=== PATIENT | male | born 1945 | race Caucasian/White ===

== ENCOUNTER 2019-11-04 21:12 | Emergency (ER) | payer OTHER ==
[~2019-11-04] VITALS: Ht 185.4 cm; Wt 108.9 kg
[~2019-11-04 21:12] MED LIST: ATOR20 PO; ATOR80 PO; Aspirin EC81 MG PO; CLOP75 PO; ERGO50000 PO; GABA300 PO; Geri-Hydrolac140 GM TP; Hair, Skin & N1 EACH PO; ISOMON20 PO; METO50ER PO; NITR.6SL SL; Naprosyn500 MG PO; Omeprazole20 M1 PO; RABE20; [UNRECOGNIZED DRUG - OTHER]; [UNRECOGNIZED DRUG - OTHER]; [UNRECOGNIZED DRUG - REMARK]
== END 2019-11-05 00:22 | disposition home or self-care (01) ==
LOC: ER 21:12
DX: F10.129 Alcohol abuse with intoxication, unspecified (principal); T22.232A Burn of second degree of left upper arm, initial encounter; T23.202A Burn of second degree of left hand, unspecified site, initial encounter; T23.201A Burn of second degree of right hand, unspecified site, initial encounter; S40.811A Abrasion of right upper arm, initial encounter; S70.211A Abrasion, right hip, initial encounter; X08.8XXA Exposure to other specified smoke, fire and flames, initial encounter; Y92.009 Unspecified place in unspecified non-institutional (private) residence as the place of occurrence of the external cause
CPT/HCPCS: 93005; 93010; 99283-25

== ENCOUNTER 2020-02-24 22:53 | Emergency (ER) | payer OTHER ==
[~2020-02-24] VITALS: Ht 167.6 cm; Wt 108.9 kg
== END 2020-02-25 00:41 | disposition home or self-care (01) ==
LOC: ER 22:53
DX: M62.830 Muscle spasm of back (principal); I10 Essential (primary) hypertension; E78.5 Hyperlipidemia, unspecified; I25.10 Atherosclerotic heart disease of native coronary artery without angina pectoris; Z86.73 Personal history of transient ischemic attack (TIA), and cerebral infarction without residual deficits; Z91.012 Allergy to eggs; Z88.8 Allergy status to other drugs, medicaments and biological substances; Z79.82 Long term (current) use of aspirin; Z79.899 Other long term (current) drug therapy
CPT/HCPCS: 93005; 93010; 99283-25

== ENCOUNTER 2020-09-18 11:34 | Observation (INO) | payer OTHER ==
[~2020-09-18] VITALS: Ht 182.9 cm; Wt 105.6 kg
[~2020-09-18 11:34] MED LIST changes: -ATOR80 PO; -Aspirin EC81 MG PO; -CLOP75 PO; -GABA300 PO; -Hair, Skin & N1 EACH PO; -METO50ER PO; -NITR.6SL SL; -Omeprazole20 M1 PO
[2020-09-18 12:05] LABS: BASOPHILS ABSOLUTE AUTO 0.05 K/mm3 (0.00-0.23); BASOPHILS PERCENT AUTO 1 % (0-2); EOSINOPHILS ABSOLUTE AUTO 0.15 K/mm3 (0.00-0.68); EOSINOPHILS PERCENT AUTO 3 % (0-6); Hematocrit 44.8 % (37.0-53.0); Hemoglobin 15.2 g/dL (13.5-17.5); IMMATURE GRAN ABSOLUTE AUTO 0.02 K/mm3 (0.00-0.10); IMMATURE GRAN PERCENT AUTO 0 % (0-1); LYMPHOCYTES ABSOLUTE AUTO 1.81 K/mm3 (0.84-5.20); LYMPHOCYTES PERCENT AUTO 31 % (21-46); MONOCYTES ABSOLUTE AUTO 0.52 K/mm3 (0.16-1.47); MONOCYTES PERCENT AUTO 9 % (4-13); Mean Corpuscular HGB 31.1 pg (26.0-34.0); Mean Corpuscular HGB Conc 33.9 g/dL (31.5-36.5); Mean Corpuscular Volume 92 fL (80-100); Mean Platelet Volume 10.9 fL (9.1-12.4); NEUTROPHILS ABSOLUTE AUTO 3.32 K/mm3 (1.96-9.15); NEUTROPHILS PERCENT AUTO 57 % (41-73); Platelet Count 212 K/mm3 (150-400); RDW Coefficient Variation 13.3 % (11.7-14.2); RDW Standard Deviation 44.6 fL (35.1-46.3); Red Blood Cell Count 4.88 M/mm3 (4.30-5.90); White Blood Cell Count 5.87 K/mm3 (4.00-11.30)
[2020-09-18 12:28] LABS: Alanine Aminotransfer (ALT/SGP 34 U/L (12-78); Albumin, Blood 3.5 g/dL (3.4-5.0); Albumin/Globulin Ratio 1.1 (0.8-1.8); Alk Phos 77 U/L (50-136); Anion Gap 8 mmol/L (6-16); Aspartate Aminotrans (AST/SGOT 18 U/L (12-37); Bilirubin, Total 0.7 mg/dL (0.1-1.0); Blood Urea Nitrogen 16 mg/dL (8-24); Bun/Creatinine Ratio 17.4 (12.0-20.0); CO2, Blood 25 mmol/L (21-32); Calcium, Blood 8.4 mg/dL (8.5-10.1); Chloride, Blood 110 mmol/L (98-108); Creatinine, Blood 0.92 mg/dL (0.60-1.20); Globulin, Blood 3.3 g/dL (2.2-4.0); Glomerular Filtration Rate >60 (60-); Glucose, Blood 145 mg/dL (70-99); Potassium, Blood 3.8 mmol/L (3.5-5.5); Sodium, Blood 143 mmol/L (136-145); Total Protein, Blood 6.8 g/dL (6.4-8.2); Troponin I <0.015 ng/mL (0.000-0.040)
[2020-09-18 12:31] LABS: International Normalized Ratio 0.97; Prothrombin Time Results 10.5 Sec (9.7-11.5)
[2020-09-18] MEDS ORDERED: ASPI81CH PO (14:16)
[2020-09-18] MEDS ORDERED: GABA300 PO (14:17)
[2020-09-18] MEDS ORDERED: METO50ER PO (14:17)
[2020-09-18] MEDS ORDERED: ATOR80 PO (14:18)
[2020-09-18] MEDS ORDERED: NITR.4SL SL (14:18)
[2020-09-18] MEDS ORDERED: CLOP75 PO (14:18)
[2020-09-18] MEDS ORDERED: PANT40 PO (14:19)
[2020-09-18] MEDS ORDERED: THERA-D2000 UNIT PO (14:20)
[2020-09-18] MEDS ORDERED: Isosorbide Mono30 MG PO (14:21)
[2020-09-18] MEDS ORDERED: TAMS.4ER PO (14:22)
[2020-09-18] MEDS ORDERED: PRESERVISION A1 EAC1 PO (14:22)
[2020-09-18] MEDS ORDERED: DICLOFENAC SOD100 G1 TOP (14:23)
[2020-09-18] MEDS ORDERED: Flonase 0.05% N16 GM (14:23)
[2020-09-18] MEDS ORDERED: Desowen60 GM TOP (14:24)
[2020-09-18] MEDS ORDERED: TRIAMCINOLONE 0.5% TOP (14:27)
--- NOTE | 2020-09-18 18:27 | NUR ---
PATIENT ARRIVED TO UNIT FROM ED VIA [employer] SINCE ARRIVAL TO UNIT. PATIENT IS ALERT AND ORIENTED, COOPERATIVE WITH CARE. ON ROOM AIR, TOLERATING WELL. PATIENT ENDORSES CHEST PAIN THAT HAS REMAINED AT SAME LEVEL SINCE ARRIVAL TO HOSPITAL, NITRO PATCH IN PLACE. HEPARIN STARTED PER EMAR, DOSAGE PER PHARMACY. BED IN LOW POSITION, CALL LIGHT WITHIN REACH.
--- NOTE | 2020-09-19 03:39 | NUR ---
SHIFT SUMMARY PATEINT A&OX4, PLEASANT, FOLLOWING COMMANDS.SLIGHT R SIDED WEAKNESS FROM PREVIOUS CVA NOTED. SR IN THE 80'S WITH STABLE BP. CP AT TOLERABLE LEVEL OF 2 CONSTANT. NITRO PASTE APPLIED TO CHEST PER ORDER. ON RA WITH NO ACUTE DISTRESS NOTED. TOLERATING REGULAR DIET. USING URINAL TO VOID. HAVE NOT SEEN PATIENT WALK IN ROOM. HEPARIN DRIP INFUSING NOW AT THERAPEUTIC LEVEL. TROP X3 NEGATIVE. FALL PRECAUTIONS IN PLACE. WILL CONTINUE TO MONITOR.
[2020-09-19 13:11] LABS: Influenza A, PCR NEGATIVE (NEGATIVE); Influenza B, PCR NEGATIVE (NEGATIVE); Resp Syncytial Virus, PCR NEGATIVE (NEGATIVE); SARS-Cov-2 (COVID-19) PCR, MMC NEGATIVE (NEGATIVE)
--- NOTE | 2020-09-19 14:59 | NUR ---
PT BACK TO ROOM PT BACK TO ROOM FROM . VS STABLE. R FEMORAL SITE WNL. DRESSING C/D/I.
--- NOTE | 2020-09-19 16:36 | NUR ---
UPDATE PHYSICIAN ORDERED TO HAVE PT BED REST FOR 4 HRS POST ANGIO. HEPARIN GTT DC'D SEE EMAR.
--- NOTE | 2020-09-19 18:38 | NUR ---
SHIFT SUMMARY PT ALERT AND ORIENTED X 4. HR STABLE. BP STABLE. BP REPORTS IMPROVEMENT IN CP. NITRO PASTE IN PLACE. PT TO THIS AFTERNOON AT 1300. RETURNED FROM GUIDE EXCURSION AT 1500. VS STABLE. R GROIN SITE WNL. DRESSING C/D/I. PT FLAT IN BED FOR 2 HRS POST OP. HOB RAISED 15 DEGREES AT A TIME. ABLE TO AMBULATE AT 1830. OXYGEN SATURATION MAINAINED ABOVE 92% ON RA. WILL CONTINUE TO MONITOR UNTIL REPORT GIVEN TO NIGHTSHIFT RN.
--- NOTE | 2020-09-19 19:30 | NUR ---
ASSUMED CARE RECEIVED REPORT FROM VALENTINEPIER RUNNER. PT RESTING, IN NO ACUTE DISTRESS. RT FEMORAL ANGIOCATH SITE C/D/I, SLIGHT REDNESS NOTED, NO LUMPS,HEMATOMA OR OOZING NOTED. PT DENIES PAIN/DISCOMFORT TO SITE. NO OTHER ACUTE NEEDS AT THIS TIME. CALL LIGHT, POSSESSIONS IN REACH.
--- NOTE | 2020-09-20 04:35 | NUR ---
SPOKE TO DR. TRIPATHI REGARDING PT'S HYPOTENSION. ORDERS RECEIVED. WILL REASSESS PT'S BP ORDERED.
--- NOTE | 2020-09-20 05:23 | NUR ---
REGENERATOR OPERATOR SUMMARY PT LYING IN BED COMFORTABLY, IN NO ACUTE DISTRESS. VS REVIEWED,WNL. BP'S NOW STABLE AFTER REMOVAL OF NITROGLYCERIN PATCH. PT DENIES CP/PRESSURE/SOB. DRSG TO RT GROIN C/D/I, NO OOZING OR HEMATOMA NOTED. PT HAS BEEN SLEEPING T/O NIGHT, NO ACUTE CHANGES IN CONDITION TO REPORT OVERNIGHT. NO ACUTE NEEDS ASSESSED AT THIS TIME. CALL LIGHT, POSSESSIONS IN REACH, WILL CONTINUE TO PROVIDE CARE UNTIL REPORT GIVEN TO ONCOMING RN.
--- NOTE | 2020-09-20 09:00 | NUR ---
PHYSICIAN AT [facility] PHYSICIAN ORDERED HOME DOSE OF IMDUR, SEE EMAR. WILL CALL LABORATORY TECHNICIAN TO CLARIFY IF NEEDED TO INCREASE HOME DOSE OF MEDICATIONS PRIOR TO DISCHARGE.
--- NOTE | 2020-09-20 09:24 | NUR ---
CARDIOLOGY UPDATE WOODYARD CRANE OPERATOR TO SIGN OFF ON PT FOR D/C. WILL INFORM HOSPITALIST. PT TO SEE CARIODOLOGY OUTPATIENT.
--- NOTE | 2020-09-20 14:32 | NUR ---
PT DISHCARGED PT PROVIDED WITH DISHCARGE INSRUCTIONS REGARDING DX, MEDICATIONS, DIET, AND POST OP DIRECTIONS. SIGNIFICANT OTHER AT BEDSIDE. PT SIGNED DISCHARGE PAPERWORK AT BEDSIDE. IV REMOVED. TELEMETRY REMOVED. PT ESCORTED OUT OF BUILDING BY SUPERVISOR TYPESETTING WITH BELONGINGS. SIGNIFICANT OTHER TO DRIVE PT HOME.
== END 2020-09-20 14:18 | disposition home or self-care (01) ==
LOC: ER 11:34 → PCU 11:35
PROVIDERS: Internal Medicine Interventional Cardiology; Physician Assistant; ADMIT Internal Medicine
DX: I25.110 Atherosclerotic heart disease of native coronary artery with unstable angina pectoris (principal); I25.2 Old myocardial infarction; I11.0 Hypertensive heart disease with heart failure; I50.9 Heart failure, unspecified; E78.5 Hyperlipidemia, unspecified; K21.9 Gastro-esophageal reflux disease without esophagitis; I67.89 Other cerebrovascular disease; Z86.73 Personal history of transient ischemic attack (TIA), and cerebral infarction without residual deficits; Z88.8 Allergy status to other drugs, medicaments and biological substances; Z91.012 Allergy to eggs; Z95.5 Presence of coronary angioplasty implant and graft; Z79.02 Long term (current) use of antithrombotics/antiplatelets; Z20.822 Contact with and (suspected) exposure to COVID-19; Z88.2 Allergy status to sulfonamides
CPT/HCPCS: 0241U; 36415; 71046; 76937; 80053; 84484; 85025; 85610; 85730; 93005; 93010; 93454; 99152; 99153; 99285-25; A9270; A9270-GY; C1760; C1769; C1894; G0480; J1644; J2250; J3010; J7030; J7050; Q9967

== ENCOUNTER 2021-01-19 20:13 | Emergency (ER) | payer OTHER ==
[~2021-01-19] VITALS: Ht 185.4 cm; Wt 106.6 kg
[~2021-01-19 20:13] MED LIST changes: +ATOR80 PO; +Aspir 8181 MG PO; +CLOP75 PO; +DICLOFENAC SOD100 G1 TOP; +Desowen60 GM TOP; +Flonase 0.05% N16 GM; +GABA300 PO; +Isosorbide Mono30 MG PO; +METO50ER PO; +NITR.4SL SL; +PANT40 PO; +PRESERVISION A1 EAC1 PO; +TAMS.4ER PO; +THERA-D2000 UNIT PO; +TRIAMCINOLONE 0.5% TOP
[2021-01-19 20:55] LABS: BASOPHILS ABSOLUTE AUTO 0.02 K/mm3 (0.00-0.23); BASOPHILS PERCENT AUTO 0 % (0-2); EOSINOPHILS PERCENT AUTO 0 % (0-6); Hematocrit 44.5 % (37.0-53.0); Hemoglobin 15.2 g/dL (13.5-17.5); IMMATURE GRAN ABSOLUTE AUTO 0.03 K/mm3 (0.00-0.10); IMMATURE GRAN PERCENT AUTO 1 % (0-1); LYMPHOCYTES PERCENT AUTO 18 % (21-46); MONOCYTES ABSOLUTE AUTO 0.28 K/mm3 (0.16-1.47); MONOCYTES PERCENT AUTO 5 % (4-13); Mean Corpuscular HGB 31.1 pg (26.0-34.0); Mean Corpuscular HGB Conc 34.2 g/dL (31.5-36.5); Mean Corpuscular Volume 91 fL (80-100); Mean Platelet Volume 10.8 fL (9.1-12.4); NEUTROPHILS ABSOLUTE AUTO 4.77 K/mm3 (1.96-9.15); NEUTROPHILS PERCENT AUTO 77 % (41-73); Platelet Count 148 K/mm3 (150-400); RDW Coefficient Variation 13.3 % (11.7-14.2); RDW Standard Deviation 44.7 fL (35.1-46.3); Red Blood Cell Count 4.88 M/mm3 (4.30-5.90)
[2021-01-19 21:15] LABS: Alanine Aminotransfer (ALT/SGP 28 U/L (12-78); Albumin, Blood 2.8 g/dL (3.4-5.0); Albumin/Globulin Ratio 0.8 (0.8-1.8); Alk Phos 69 U/L (50-136); Anion Gap 6 mmol/L (6-16); Aspartate Aminotrans (AST/SGOT 45 U/L (12-37); Bilirubin, Total 0.5 mg/dL (0.1-1.0); Blood Urea Nitrogen 18 mg/dL (8-24); Bun/Creatinine Ratio 18.4 (12.0-20.0); CO2, Blood 25 mmol/L (21-32); Calcium, Blood 8.2 mg/dL (8.5-10.1); Chloride, Blood 105 mmol/L (98-108); Creatinine, Blood 0.98 mg/dL (0.60-1.20); Globulin, Blood 3.7 g/dL (2.2-4.0); Glomerular Filtration Rate >60 (60-); Glucose, Blood 120 mg/dL (70-99); Potassium, Blood 4.1 mmol/L (3.5-5.5); Sodium, Blood 136 mmol/L (136-145); Total Protein, Blood 6.5 g/dL (6.4-8.2); Troponin I <0.015 ng/mL (0.000-0.040)
[2021-01-19] MEDS ORDERED: DEXA4 PO (22:25)
== END 2021-01-20 01:06 | disposition home or self-care (01) ==
LOC: ER 20:13
PROVIDERS: Emergency Medicine
DX: U07.1 COVID-19 (principal); I25.10 Atherosclerotic heart disease of native coronary artery without angina pectoris; I10 Essential (primary) hypertension; Z79.82 Long term (current) use of aspirin; Z88.8 Allergy status to other drugs, medicaments and biological substances; Z91.012 Allergy to eggs
CPT/HCPCS: 71045; 80053; 83880; 84145; 84484; 85025; 93005; 93010; 99284-25; J1100

== ENCOUNTER 2021-01-22 20:11 | Inpatient (IN) | payer OTHER ==
[~2021-01-22] VITALS: Ht 180.3 cm; Wt 81.7 kg
[~2021-01-22 20:11] MED LIST changes: +DEXA4 PO
[2021-01-22 20:40] LABS: BASOPHILS ABSOLUTE AUTO 0.01 K/mm3 (0.00-0.23); BASOPHILS PERCENT AUTO 0 % (0-2); EOSINOPHILS PERCENT AUTO 0 % (0-6); Hematocrit 43.4 % (37.0-53.0); Hemoglobin 14.9 g/dL (13.5-17.5); IMMATURE GRAN ABSOLUTE AUTO 0.06 K/mm3 (0.00-0.10); IMMATURE GRAN PERCENT AUTO 1 % (0-1); LYMPHOCYTES ABSOLUTE AUTO 0.73 K/mm3 (0.84-5.20); LYMPHOCYTES PERCENT AUTO 10 % (21-46); MONOCYTES PERCENT AUTO 5 % (4-13); Mean Corpuscular HGB 30.6 pg (26.0-34.0); Mean Corpuscular HGB Conc 34.3 g/dL (31.5-36.5); Mean Corpuscular Volume 89 fL (80-100); Mean Platelet Volume 10.2 fL (9.1-12.4); NEUTROPHILS PERCENT AUTO 84 % (41-73); Platelet Count 206 K/mm3 (150-400); RDW Coefficient Variation 13.1 % (11.7-14.2); RDW Standard Deviation 42.9 fL (35.1-46.3); Red Blood Cell Count 4.87 M/mm3 (4.30-5.90)
[2021-01-22 21:00] LABS: Albumin, Blood 2.4 g/dL (3.4-5.0); Albumin/Globulin Ratio 0.6 (0.8-1.8); Bilirubin, Total 0.6 mg/dL (0.1-1.0); Bun/Creatinine Ratio 31.7 (12.0-20.0); Calcium, Blood 8.5 mg/dL (8.5-10.1); Creatinine, Blood 1.23 mg/dL (0.60-1.20); Potassium, Blood 4.1 mmol/L (3.5-5.5); Total Protein, Blood 6.4 g/dL (6.4-8.2)
[2021-01-23 06:15] LABS: Anion Gap 6 mmol/L (6-16); Blood Urea Nitrogen 35 mg/dL (8-24); CO2, Blood 26 mmol/L (21-32); Calcium, Blood 8.2 mg/dL (8.5-10.1); Chloride, Blood 109 mmol/L (98-108); Creatinine, Blood 0.81 mg/dL (0.60-1.20); Glomerular Filtration Rate >60 (60-); Glucose, Blood 135 mg/dL (70-99); Potassium, Blood 4.3 mmol/L (3.5-5.5); Sodium, Blood 141 mmol/L (136-145)
--- NOTE | 2021-01-25 10:23 | NUR ---
Code status conversation underway with patients two children Elva and Duke and also pt's sister, Sully. They have each been given a full update on status and state they will call me back this am with direction. Pt has repeatedly refused medical care since being dx with Covid approx one week ago. He came to ER initially and was sent home with O2 that he declined to use at home. Jessica called 911 when she found him severely hypoxic in his trailer. 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 Pt has wanted to leave AMA several times during his hospital stay. He does not receive regular medical care and has no PCP so medical hx is an unknown. Will cont to follow closely. Pt is currently being tx with precidex for w/d s/s and full tx for covid continues. Family clear that they want to cont tx but also state pt would not want to be intubated. Pt was told yesterday if he left the hospital AMA, he would most likely . Pt wanted to leave AMA anyway but no family could accomodate him as they are caring for his mother with covid and other ill family members currently
== END 2021-01-23 16:53 | DRG 177 ==
LOC: ER 20:11 → ERHOLD 23:15
PROVIDERS: Student in an Organized Health Care Education/Training Program; ADMIT Hospitalist
PROC: 8E0ZXY6 Isolation (ICD-10-PCS; principal; 2021-01-22)
PROC: 5A09357 Assistance with Respiratory Ventilation, Less than 24 Consecutive Hours, Continuous Positive Airway Pressure (ICD-10-PCS; 2021-01-22)
PROC: 3E0333Z Introduction of Anti-inflammatory into Peripheral Vein, Percutaneous Approach (ICD-10-PCS; 2021-01-22)
PROC: XW033E5 Introduction of Remdesivir Anti-infective into Peripheral Vein, Percutaneous Approach, New Technology Group 5 (ICD-10-PCS; 2021-01-23)
DX: U07.1 COVID-19 (principal); J12.82 Pneumonia due to coronavirus disease 2019; J96.01 Acute respiratory failure with hypoxia; N17.9 Acute kidney failure, unspecified; R79.1 Abnormal coagulation profile; I10 Essential (primary) hypertension; E78.5 Hyperlipidemia, unspecified; M54.9 Dorsalgia, unspecified; G89.29 Other chronic pain; I25.10 Atherosclerotic heart disease of native coronary artery without angina pectoris; Z91.012 Allergy to eggs; Z88.8 Allergy status to other drugs, medicaments and biological substances; Z79.82 Long term (current) use of aspirin; Z79.02 Long term (current) use of antithrombotics/antiplatelets; Z79.899 Other long term (current) drug therapy; Z86.73 Personal history of transient ischemic attack (TIA), and cerebral infarction without residual deficits; Z95.5 Presence of coronary angioplasty implant and graft; Z98.890 Other specified postprocedural states
CPT/HCPCS: 36415; 71045; 80048; 80053; 84145; 85025; 85379; 93005; 93010; 93970; 94660; 96361; 96372; 96374; 96375; 99285-25; A9270; J1100; J1650; J7030